=== PATIENT | male | born 1960 | race Caucasian/White ===

== ENCOUNTER → 2019-01-13 14:28 | Outpatient (CLI) | payer OTHER, SELFPAY ==
--- NOTE | 2019-01-13 14:31 | DI.RAD.S_ITS ---
PROCEDURE: XR BONE SURVEY INDICATIONS: mgus, eval for lytic lesions TECHNIQUE: Multiple views obtained of various bony structures as described below. COMPARISON: None. FINDINGS: Skull (lateral): No suspicious bony lesions. No fractures. Thoracic spine (AP, lateral): No suspicious bony lesions. No acute vertebral body compression fractures. Lumbar spine (AP, lateral): No suspicious bony lesions. No acute vertebral body compression fractures. Pelvis (AP): No suspicious bony lesions. No fractures. Overlying soft tissues appear unremarkable. Right and left humeri (AP): No suspicious bony lesions. No fractures. Overlying soft tissues appear unremarkable. Right and left femurs (AP): No suspicious bony lesions. No fractures. Overlying soft tissues appear unremarkable. IMPRESSION: No specific evidence for lytic lesion identified. Dictated by: Eliud Brush M.D. on 01/13/2019 at 15:59 Approved by: Eliud Brush M.D. on 01/13/2019 at 16:01
== END ==
PROVIDERS: PCP Physician Assistant Medical
DX: D47.2 Monoclonal gammopathy (principal)
CPT/HCPCS: 77075

== ENCOUNTER → 2019-06-29 13:34 | Outpatient (CLI) | payer OTHER, SELFPAY ==
[2019-06-29 14:00] LABS: Add Manual Diff / Slide Review NO; Basophils Absolute Auto 0 /uL (0-100); Basophils Percent Auto 0.6 % (0-2); Eosinophils Absolute Auto 200 /uL (0-450); Hematocrit 42.7 % (41-53); Hemoglobin 14.4 g/dL (13.5-17.5); Lymphocytes Absolute Auto 1200 /uL (1100-4500); Lymphocytes Percent Auto 22.1 % (25-40); Mean Corpuscular HGB Conc 33.6 % (30-36); Mean Corpuscular Hemoglobin 29.8 PG (26-34); Mean Corpuscular Volume 88.6 fL (80-100); Monocytes Absolute Auto 400 /uL (0-900); Monocytes Percent Auto 8.5 % (3-14); Neutrophils Absolute Auto 3500 /uL (1500-7000); Neutrophils Percent Auto 65.8 % (50-75); Platelet Count 269 X10^3/uL (150-400); Red Blood Cell Count 4.81 X10^6/uL (4.5-5.9); Red Cell Distribution Width 14.7 % (11.6-14.8); White Blood Cell Count 5.3 X10^3/uL (4.5-11.0)
[2019-06-29 14:16] LABS: Alanine Aminotransferase 24 IU/L (<50); Albumin 4.2 g/dL (3.5-5.0); Albumin Globulin Ratio 1.2 (1.0-2.8); Alkaline Phosphatase 72 U/L (38-126); Aspartate Aminotransferase 29 IU/L (17-59); BUN Creatinine Ratio 15.6 (6-22); Bilirubin Total 0.5 mg/dL (0.2-1.3); Blood Urea Nitrogen 14 mg/dL (9-20); Calcium 9.2 mg/dL (8.4-10.2); Carbon Dioxide 26 mmol/L (22-32); Chloride 106 mmol/L (98-107); Estimated Glomerular Filt Rate > 60.0 mL/min (>60); Globulin 3.5 g/dL (1.7-4.1); Glucose 89 mg/dL (70-100); HEMOLYSIS < 15 (0-50); Potassium 4.5 mmol/L (3.4-5.1); Sodium 140 mmol/L (137-145); Total Protein 7.7 g/dL (6.3-8.2)
[2019-06-29 15:30] LABS: C-Reactive Protein Quant 1.6 mg/dL (<1.0)
[2019-07-01 15:45] LABS: Free Kappa Light Chain 22.3 mg/L (3.3-19.4); Free Kappa/ Lambda Ratio 1.01 (0.26-1.65)
[2019-07-05 12:59] LABS: Abnormal Protein Band 1 0.2 g/dL (NONE DETECTED); Albumin 3.7 g/dL (3.8-4.8); Alpha 1 Globulin 0.3 g/dL (0.2-0.3); Alpha 2 Globulin 0.8 g/dL (0.5-0.9); Beta 1 Globulin 0.5 g/dL (0.4-0.6); Protein, Total 6.8 g/dL (6.1-8.1)
== END ==
PROVIDERS: PCP Physician Assistant Medical; Referring Provider Internal Medicine Rheumatology; Visit Provider Internal Medicine Rheumatology
DX: M15.0 Primary generalized (osteo)arthritis (principal); L40.9 Psoriasis, unspecified; M25.50 Pain in unspecified joint; D47.2 Monoclonal gammopathy
CPT/HCPCS: 36415; 80053; 83883; 84155; 84165; 85025; 86140

== ENCOUNTER → 2021-01-23 08:09 | Outpatient (CLI) | payer OTHER, SELFPAY ==
--- NOTE | 2021-01-23 08:10 | DI.US.S_ITS ---
PROCEDURE: US ABDOMEN COMPLETE INDICATIONS: RIGHT LOWER ABDOMINAL PAIN; FAMILY HISTORY COLON CANCER TECHNIQUE: Real-time scanning was performed of the abdominal and retroperitoneal organs, with image documentation. COMPARISON: None. FINDINGS: Liver: Liver is normal in size and homogeneous in echotexture. Gallbladder: Gallbladder is normal in sonographic appearance without gallstones, gallbladder wall thickening, pericholecystic fluid, or abnormal sonographic Gilbert's. Biliary ducts: Intrahepatic bile ducts are non-dilated. Extrahepatic bile duct caliber measures 7 mm. Normal is 6-7 mm or less in diameter, or 10 mm or less post-cholecystectomy. Pancreas: Visualized portions of the pancreas are sonographically normal. Spleen: Spleen is normal in size and homogeneous in echotexture. Kidneys: Left kidney is normal in size and echotexture. Right kidney is surgically absent. Left kidney measures 12.3 cm long. No hydronephrosis or nephrolithiasis. No solid masses. Aorta: Visualized aorta is normal in caliber at less than 3 cm. Iliacs: Proximal common iliac arteries are normal in caliber at less than 2.5 cm. IVC: Intrahepatic inferior vena cava is patent. Miscellaneous: No free abdominal fluid. IMPRESSION: 1. Abdomen without acute sonographic abnormalities. Specifically, no abnormalities identified in the right lower quadrant. 2. Status post right nephrectomy. Dictated by: Sam Ibanez M.D. on 01/23/2021 at 9:52 Approved by: Sam Ibanez M.D. on 01/23/2021 at 9:54
== END ==
PROVIDERS: PCP Physician Assistant Medical; Referring Provider Internal Medicine Hematology & Oncology; Visit Provider Internal Medicine Hematology & Oncology
DX: D47.2 Monoclonal gammopathy (principal); D50.9 Iron deficiency anemia, unspecified; R10.31 Right lower quadrant pain
CPT/HCPCS: 76700

== ENCOUNTER → 2022-05-07 11:53 | Outpatient (CLI) | payer OTHER, SELFPAY ==
[2022-05-07 13:45] LABS: COVID19 -Nasal RAPID Negative (Negative)
== END ==
PROVIDERS: PCP Physician Assistant Medical; Visit Provider Surgery
DX: Z20.822 Contact with and (suspected) exposure to COVID-19 (principal); Z01.812 Encounter for preprocedural laboratory examination
CPT/HCPCS: 87635; C9803

== ENCOUNTER 2022-05-08 14:44 | Day surgery (SDC) | payer OTHER, SELFPAY ==
[2022-05-08] VITALS (7 sets, daily range): BP systolic 81–124; BP diastolic 45–78; PULSE 84–95; RESP 11–16; TEMP 36.4–36.8; O2SAT 98–99; BMI 25.1
--- NOTE | 2022-05-08 | PATH_ITS ---
[facility] Accession Number: [id number] . 01 Material submitted: . PART A: duodenum bulb - DUODENAL BULB BIOPSY PART B: stomach - ANTRUM BIOPSY PART C: esophagus - DISTAL ESOPHAGUS BIOPSY PART D: esophagus - MID ESOPHAGUS BIOPSY . 01 Diagnosis: A. Duodenum, Bulb, Biopsy: Duodenal mucosa with patchy gastric surface foveolar metaplasia, consistent with peptic duodenitis. Negative for intraepithelial lymphocytosis or villous blunting. Negative for dysplasia and malignancy. . B. Stomach, Antrum, Biopsy: Antral mucosa with mild chronic gastritis. Negative for Helicobacter by immunohistochemistry. Negative for intestinal metaplasia. Negative for dysplasia and malignancy. . C. Distal Esophagus, Biopsy: Ulcerated squamous epithelium and fragments of fibrinopurulent exudate. A PAS stain is negative for fungal organisms. No viral cytopathic effects identified. Negative for dysplasia and malignancy. . D. Mid Esophagus, Biopsy: Squamous epithelium with no diagnostic abnormality. Separate fragment of fibrinopurulent exudate consistent with nearby ulcer. Intraepithelial eosinophils are not increased. No viral cytopathic effects or fungal organisms identified. Negative for dysplasia and malignancy. [facility] 05/14/2022 0944 Local . 01 Electronically signed: . Isabel Pinzon MD, Pathologist NPI- [id number] . 01 Gross description: . Part A: DUODENAL BULB BIOPSY: Received in formalin are 4 fragment(s) of weems, soft tissue measuring 0.1 x 0.1 x 0.1 cm to 0.3 x 0.2 x 0.2 cm submitted entirely in 1 cassette(s) Part B: ANTRUM BIOPSY: Received in formalin are 2 fragment(s) of weems, soft tissue measuring 0.2 x 0.2 x 0.2 cm to 0.3 x 0.3 x 0.2 cm submitted entirely in 1 cassette(s) Part C: DISTAL ESOPHAGUS BIOPSY: Received in formalin are 2 fragment(s) of weems, soft tissue measuring 0.2 x 0.2 x 0.2 cm to 0.3 x 0.2 x 0.2 cm submitted entirely in 1 cassette(s) Part D: MID ESOPHAGUS BIOPSY: Received in formalin are 4 fragment(s) of weems, soft tissue measuring 0.1 x 0.1 x 0.1 cm to 0.2 x 0.2 x 0.2 cm submitted entirely in 1 cassette(s) /[facility] 05/10/2022 0026 Local . 01 Microscopic: . B. An immunohistochemical stain was performed to evaluate for Helicobacter organisms and is negative. The control stain showed appropriate reactivity. . C. A PAS stain was performed to evaluate for fungal organisms and is negative. The control stain showed appropriate reactivity. . * This test was developed and its performance characteristics determined by [employer]. It has not been cleared or approved by the U.S. Food and Drug Administration. The FDA has determined that such clearance or approval is not necessary. This test is used for clinical purposes. It should not be regarded as investigational or for research. . 01 Pathologist provided ICD-10: D50.9 . 01 CPT . 555612, 547360, 958863, 746152, [id number], 575660 Specimen Comment: A courtesy copy of this report has been sent to [phone] Performed at: 01 [facility] [address] [place] [address], [place], [place] [id number] MD Taqueria Boothe MD Phone: [phone]
[2022-05-08] MEDS: LACTATED RINGERS 1,000 ML 84 ML IV (15:03)
--- NOTE | 2022-05-08 15:35 | P.HP_ITS ---
History of Present Illness History of Present Illness Date Patient Seen: 05/08/22 Time Patient Seen: 15:35 Chief complaint: EGD/COLONOSCOPY Narrative: Luis Angel is a 61-year-old man has recently developed anemia. Dr. Brush urged him to get endoscopy. His last colonoscopy was about 3 years ago in [place] and was normal. Patient History Family & Social History Social History: household members spouse,family Tobacco & Substance use: Smoking Status Former smoker alcohol intake current alcohol intake frequency holiday/special occasion Substance Use Type does not use Meds Home Medications and Allergies Home Medications Medication Instructions Recorded Confirmed Type cholecalciferol (vitamin D3) 25 2,000 unit PO DAILY 01/05/19 05/08/22 History mcg (1,000 unit) capsule (Vitamin D3) ferrous sulfate 325 mg (65 mg 325 mg PO DAILY 01/25/19 05/08/22 History iron) tablet (iron) lisinopril 30 mg tablet 30 mg PO DAILY 05/08/22 05/08/22 History oxycodone 10 mg tablet 10 mg PO DIRECTED PRN Pain 05/08/22 05/08/22 History (Scale Score 7-10) Allergies Allergy/AdvReac Type Severity Reaction Status Date / Time zolpidem Allergy Severe Confusion Verified 05/08/22 14:53 amitriptyline Allergy Mild Verified 05/08/22 14:53 nortriptyline Allergy Mild Verified 05/08/22 14:53 Exam Vital Signs (past 8 hours): - 05/08/22 15:15 Temperature 98.3 F Pulse Rate 89 Respiratory Rate 16 Blood Pressure 124/78 Pulse Oximetry 99 Oxygen Delivery Method Room Air Oxygen Delivery Method Room Air Const General: healthy appearing Assessment & Plan Assessment and plan (1) Iron deficiency anemia: Status: Acute Plan We reviewed the risks benefits and rationale of EGD and colonoscopy and he would like to proceed Time Spent With Patient Critical Care time: I spent a total of [] minutes of critical care time on this patient's care today; this time is exclusive of procedural time.
--- NOTE | 2022-05-08 16:46 | PM.OP.EC ---
Operative Date/Time/Diagnoses Date of procedure: 05/08/22 Time of procedure: 16:46 Pre-op diagnosis: Anemia Post-op diagnosis: same Procedure & Clinicians Study performed: EGD and colonoscopy Same procedure as scheduled: Yes Surgeon: José Miguel Cervantes Procedure Notes Procedure in detail: Surgeon: José Miguel Cervantes MD Anesthesia: Gabriel Wright MD Procedure in detail: A timeout was performed. A bite blocked was placed and monitors were attached to the patient. The patient was positioned in a left lateral decubitus position. Sedation was administered by Dr. Wright. Once the patient was sedated the endoscope was inserted through the bite block and passed through the esophagus and stomach and into the duodenum. There was a rather large ulcer in the duodenal bulb. There was no visible vessel and no active bleeding. A few random biopsies were taken from the duodenal bulb near the ulcer edge. We then withdrew the scope into the stomach. There was moderate antritis. We took some random biopsies of the antrum. No other abnormalities were seen stomach. The endoscope was retroflexed and no hiatal hernia was seen. The endoscope was straightned and withdrawn into the esophagus. The esophageal mucosa was inflamed and friable in the distal third of the esophagus. There appeared to be a thin film of exudate over the mucosa of the distal esophagus. Random biopsies were taken from the distal esophagus in the midesophagus. The upper esophagus was normal. Findings: Large duodenal ulcer, antritis and inflamed friable mucosa in the distal third of the esophagus. Next we repositioned the patient for a colonoscopy. A digital rectal exam was performed and was normal. The colonoscope was inserted and advanced to the cecum. The appendiceal orifice was identified and photographed. The scope was slowly withdrawn over greater than 6 minutes. No abnormalities were seen. The scope was retroflexed in the rectum and abnormalities were seen. Findings: Normal colon EBL: 5 mL Scope withdrawal time: 7 minutes Sedation minutes: 28 minutes Post-procedure Disposition: PACU
[2022-05-09 12:41] LABS: Interpretation Negative (Negative)
== END 2022-05-08 17:35 | disposition home or self-care (01) ==
PROVIDERS: PCP Physician Assistant Medical; Referring Provider Surgery; Visit Provider Surgery
PROC: 0DJ08ZZ Inspection of Upper Intestinal Tract, Via Natural or Artificial Opening Endoscopic (ICD-10-PCS; CPT 43235; principal; 2022-05-08 14:15)
PROC: 0DJD8ZZ Inspection of Lower Intestinal Tract, Via Natural or Artificial Opening Endoscopic (ICD-10-PCS; CPT 45378; 2022-05-08 14:15)
DX: D64.9 Anemia, unspecified (principal); K26.9 Duodenal ulcer, unspecified as acute or chronic, without hemorrhage or perforation; K29.50 Unspecified chronic gastritis without bleeding
CPT/HCPCS: 43239; 45378; 83013